=== PATIENT | female | born 1965 | race Caucasian/White ===

== ENCOUNTER → 2018-07-22 | Outpatient (CLI) | payer OTHER | LOC: M.RAD 10:11 | DX: Z12.31 Encounter for screening mammogram for malignant neoplasm of breast (principal) ==

== ENCOUNTER → 2018-08-27 | Outpatient (CLI) | payer OTHER | LOC: M.ULTRA 09:00 | DX: N60.01 Solitary cyst of right breast (principal); N63.20 Unspecified lump in the left breast, unspecified quadrant ==

== ENCOUNTER → 2020-01-08 | Outpatient (CLI) | payer OTHER | LOC: M.RAD 13:00 | PROVIDERS: ATTEND Family Medicine | DX: Z12.31 Encounter for screening mammogram for malignant neoplasm of breast (principal) ==

== ENCOUNTER → 2021-01-06 | Outpatient (CLI) | payer OTHER | LOC: M.RAD 09:06 | PROVIDERS: ATTEND Family Medicine | DX: Z12.31 Encounter for screening mammogram for malignant neoplasm of breast (principal) ==

== ENCOUNTER → 2021-01-19 | Outpatient (CLI) | payer OTHER ==
--- NOTE | 2021-01-20 16:06 | PATH ---
[address] [address] PATHOLOGY RPT PROCEDURE Name: KATHE HUIZAR [facility] [id number] Admission: 01/19/21 Date of : 61 Discharge: Report #: [id number] Path Case #: [id number] [facility] Accession Number: [id number] . 01 Material submitted: . breast - LEFT BREAST. Modifiers: left . 01 Clinical history: . 1.15 X 0.96 X 0.92CM 400 1 CM FROM NIPPLE . 02 Diagnosis: Left breast, 4:00, 1 cm from nipple, image guided core biopsies: - Benign breast tissue with prominent cystic apocrine change and scattered luminal calcifications, negative for atypia. See comment. (NINI:shiraz; 01/20/2021) MBR 01/20/2021 1131 Local . 02 Comment: Reviewed with Dr. Vijay Peace on 01/20/2021 who agrees with the diagnosis. (NINI:shiraz; 01/20/2021) . 02 Electronically signed: . Ambrocio Foster MD, Pathologist NPI- [id number] . 01 Gross description: . The specimen is received in a very minimal amount of formalin, labeled "Kathe Huizar, Left breast 400 1 cm FN" and consists of 3 previously disrupted and fragmented cylindrical tissues (ranging in length from 0.2 cm to 6.9 cm and ranging in diameter from 0.2 cm to 0.6 cm). The cores are sectioned and submitted entirely, individually in 3 cassettes. The cold ischemic time is 6 minutes. The total time in formalin is 10 hours.(PLATINUM; 01/19/2021) DKA/DEVEN 01/19/2021 1705 Local . 02 Pathologist provided ICD-10: N64.89 . 02 CPT . 847535 Specimen Comment: A courtesy copy of this report has been sent to [phone] Specimen Comment: [phone] Specimen Comment: Report sent to / DR Cindy WU Performed at: 01 [place] [address] PATHOLOGY RPT PROCEDURE Name: KATHE HUIZAR [id number] Admission: 01/19/21 Date of : 61 Discharge: Report #: [id number] Path Case #: [id number] [address] [facility] [address], [place], [place] [id number] MD Vijay Peace MD Phone: [phone] Performed at: 02 [facility] [address], [place], [place] [id number] MD Ambrocio Foster MD Phone: [phone]
== END | disposition home or self-care (01) ==
LOC: M.ULTRA 01-12 08:30
PROVIDERS: ATTEND Family Medicine
DX: N64.89 Other specified disorders of breast (principal); R92.1 Mammographic calcification found on diagnostic imaging of breast